=== PATIENT | male | born 1965 | race African-American/Black ===

== ENCOUNTER 2019-12-03 22:07 | Emergency (ER) | payer SELFPAY ==
[~2019-12-03] VITALS: Ht 180.3 cm; Wt 84.0 kg
[2019-12-04] MEDS ORDERED: ONDANSETRON HCL 4MG/2ML INJ IV STA (00:50)
[2019-12-04] MEDS ORDERED: SODIUM CHLORIDE 0.9% 1,000 ML IV ONE (00:50)
[2019-12-04 01:37] LABS: HEMATOCRIT. 30.9 % (42.0-52.0); HEMOGLOBIN. 9.9 g/dL (14.0-18.0); MEAN CORPUSCULAR HEMOGLOBIN 27.5 pg (28.0-32.0); MEAN CORPUSCULAR VOLUME 85.3 fL (80.0-94.0); MEAN PLATELET VOLUME 9.4 fl (7.4-10.4); PLATELET 54 x1000/uL (130-400); RED BLOOD CELL COUNT 3.62 mill/uL (4.7-6.1)
[2019-12-04 01:39] LABS: CHLORIDE 112 mEq/L (98-107)
[2019-12-04 01:43] LABS: ETHANOL BLOOD < 10 mg/dL
[2019-12-04 05:36] LABS: ATYPICAL LYMPHOCYTES 1; PLATELET ESTIMATE DECREASED
[2019-12-04 06:00] VITALS: BP 151/92
== END 2019-12-04 11:57 | disposition home or self-care (01) ==
LOC: ER 22:07
DX: F10.129 Alcohol abuse with intoxication, unspecified (principal); G92 Toxic encephalopathy; Y90.0 Blood alcohol level of less than 20 mg/100 ml; D64.9 Anemia, unspecified; E87.6 Hypokalemia; R74.0 Nonspecific elevation of levels of transaminase and lactic acid dehydrogenase [LDH]; R79.89 Other specified abnormal findings of blood chemistry
CPT/HCPCS: 36415; 80053; 80307; 80320; 80329; 83690; 85025; 93005; 99284; J7030; Z7610; G0480